=== PATIENT | female | born 1980 | race Caucasian/White ===

== ENCOUNTER 2024-01-09 20:45 | Emergency (ER) | payer MEDICAID, SELFPAY ==
[2024-01-09 20:49] VITALS: BP 142/87; PULSE 83; RESP 14; TEMP 36.6; O2SAT 99
--- NOTE | 2024-01-09 21:25 | ED.DENTAL ---
HPI - Dental/Oral General Chief complaint: Dental/Oral Stated complaint: tooth pain right side with ear pain Time Seen by Provider: 01/09/24 20:51 Source: patient History of Present Illness HPI Narrative: INTERMITTENT PAIN AT TOOTH NUMBER 29 FOR THE LAST FEW DAYS. LAST TIME WAS SEEN BY DENTIST YEARS AGO. SHE DENIES ANY FEVER, CHILLS, DIFFICULTY SWALLOWING OR BREATHING OR HEADACHE Review of Systems Review of Systems: All systems reviewed & are unremarkable except as noted in HPI and below Exam Narrative: GENERAL APPEARANCE: WELL-DEVELOPED, WELL-NOURISHED SKIN: NORMAL COLOR HEAD: NORMOCEPHALIC, NONTRAUMATIC EYES: CLEAR CONJUNCTIVA ENT: OROPHARYNX NORMAL, EARS NORMAL, NOSE NORMAL, TOOTH NUMBER 29 HAVE A HOLE IN IT, OTHERWISE NO SURROUNDING ERYTHEMA OR SWELLING OR ABSCESS FORMATION NECK: SUPPLE, NONTENDER NEUROLOGIC: ALERT AND ORIENTED ?3, RESIDENTIAL CARE FACILITY MANAGER IS NORMAL TESTED, NO GROSS MOTOR DEFICIT Course Vital Signs Vital signs: Vital Signs Temperature 36.6 C 01/09/24 20:49 Pulse Rate 83 01/09/24 20:49 Respiratory Rate 14 01/09/24 20:49 Blood Pressure 142/87 H 01/09/24 20:49 Pulse Oximetry 99 01/09/24 20:49 Oxygen Delivery Room Air 01/09/24 20:49 Temperature 36.6 C 01/09/24 20:49 Pulse Rate 83 01/09/24 20:49 Respiratory Rate 14 01/09/24 20:49 Blood Pressure 142/87 H 01/09/24 20:49 Pulse Oximetry 99 01/09/24 20:49 Oxygen Delivery Room Air 01/09/24 20:49 MDM - Dental/Oral MDM Narrative Medical decision making narrative: DENTAL INFECTION IS MY CONCERN PATIENT TO BE DISCHARGED ON CLINDAMYCIN AND IBUPROFEN Differential Diagnosis Differential diagnosis: Likely dental caries, toothache and other (AT) Critical Care Time Critical Care Time Critical Care Time: No Discharge Plan Discharge Clinical Impression: Dental caries Patient Disposition: Home, Self-Care Condition: Stable Instructions: Antibiotic Form, Toothache (ED) Additional Instructions: CALL YOUR DENTIST SOON POSSIBLE FOR RE-EVALUATION TAKE IBUPROFEN [phone] EVERY 8 HOURS NEEDED Prescriptions: New clindamycin HCl 300 mg capsule 300 mg PO Q6H Qty: 40 0RF ibuprofen [IBU] 800 mg tablet 800 mg PO TID Qty: 20 0RF Follow-up/Referrals: PHYSICIAN NOT ON STAFF,NONSTAFF [Primary Care Provider] - Stand Alone Forms: Work/School Release IP
[2024-01-09 21:27] LABS: BEDSIDEPREGUCG Negative (Negative)
[2024-01-09] MEDS: CLINDAMYCIN HCL 150 MG CAP 450 MG PO (22:05)
[2024-01-09] MEDS: ACETAMINOPHEN 500 MG TABLET 1000 MG PO (22:05)
[2024-01-09] MEDS: IBUPROFEN 400 MG TABLET 800 MG PO (22:06)
== END 2024-01-09 22:16 | disposition home or self-care (01) ==
PROVIDERS: Emergency Provider Emergency Medicine
DX: K02.9 Dental caries, unspecified (principal)
CPT/HCPCS: 81025; 99283; A9270

== ENCOUNTER 2024-02-04 15:50 | Emergency (ER) | payer MEDICAID, SELFPAY ==
[2024-02-04 16:05] VITALS: BP 130/77; PULSE 71; RESP 20; TEMP 36.2; O2SAT 100
--- NOTE | 2024-02-04 16:38 | ED_ITS ---
HPI - Nausea/Vomiting/Diarrhea General Chief complaint: Nausea/Vomiting/Diarrhea Stated complaint: Vomiting/Loss Of Appetite Time Seen by Provider: 02/04/24 16:38 Source: patient, RN notes reviewed and old records reviewed Mode of arrival: ambulatory Limitations: no limitations History of Present Illness HPI Narrative: Patient presents with complaints of nausea and vomiting that began earlier today. She denies any abdominal pain. states that she has been having difficulty keeping down p.o. fluids. Has had multiple sick contacts with similar symptoms. She denies any fever, chills, sweats. Denies any injury or trauma. She voices no other concerns or complaints. Related Data Allergies Allergy/AdvReac Type Severity Reaction Status Date / Time morphine Allergy Swelling Verified 02/04/24 16:37 of Lip/Tongue/Throat Review of Systems Review of Systems: All systems reviewed & are unremarkable except as noted in HPI and below Constitutional: Constitutional: Reports no additional constitutional comp laints ENT: Reports system reviewed and no additional complaints, except as documented Cardiovascular: Cardiovascular: Reports no additional cardiovascular complaints Respiratory: Respiratory: Reports no additional respiratory complaints Gastrointestinal: Gastrointestinal: Reports no additional gastrointestinal complaints, Denies abdominal pain, Denies constipation, Denies diarrhea, Reports nausea and Reports vomiting PMFSH Comments At the time of my signature, I reviewed and agree with the nursing past medical, surgical, social, and family history. There is no relevant family history pertinent to the patient complaint. Exam Const: General: cooperative, no acute distress, alert and awake Orientation/consciousness: oriented to person, oriented to place and oriented to time HENMT: Head: normal to inspection Mouth: Yes moist mucous membranes Resp: Effort & Inspection: normal respiratory effort and able to speak in complete sentences Auscultation: clear to auscultation bilaterally, no crackles, no rales, no rhonchi and no wheezes Cardio: Palpation: normal PMI Rate: regular rate Rhythm: regular rhythm Heart sounds: S1 normal heart sound present and S2 normal heart sound present GI: GI Palp: Yes Soft to palpation, No Tenderness to palpation present (GI) and No Guarding due to palpation present (GI) Auscultation: normal bowel sounds Neuro: General: oriented to person, oriented to place and oriented to time Cranial nerves: Yes CN's II-XII intact bilaterally Psych: Appearance: grossly normal Thought process: Normal thought process present Insight: Good insight present (Psych) Judgement: Good judgement present (Psych) Course Course Level of Care: Express Care Visit Vital Signs Vital signs: Vital Signs Temperature 97.2 F L 02/04/24 16:05 Pulse Rate 71 02/04/24 16:05 Respiratory Rate 20 02/04/24 16:05 Blood Pressure 130/77 02/04/24 16:05 Pulse Oximetry 100 02/04/24 16:05 Oxygen Delivery Room Air 02/04/24 16:05 Temperature 97.2 F L 02/04/24 16:05 Pulse Rate 71 02/04/24 16:05 Respiratory Rate 20 02/04/24 16:05 Blood Pressure 130/77 02/04/24 16:05 Pulse Oximetry 100 02/04/24 16:05 Oxygen Delivery Room Air 02/04/24 16:05 Reviewed MDM - Nausea/Vomiting/Diarrhea MDM Narrative Medical decision making narrative: Reassuring physical exam. Symptoms likely viral in origin. Treat symptomatically. Patient advised to adhere to a light bland diet, advance as tolerated. Start Zofran. Discharge instructions reviewed with patient, as well as provided in writing per nursing staff. The instructions also include specific and strict return/GO TO THE ER as well as f/u information. All questions have been answered, and the patient deny any further questions with discharge and discharge plan. Some parts of this dictation were generated by voice recognition software and may contain typographical and/or grammatical inaccuracies. Differential Diagnosis Differential diagnosis: Likely food poisoning, gastroenteritis and drug-induced nausea and vomiting Medical Records Attestation: I reviewed the patient's medical records. Discharge Plan Discharge Clinical Impression: Acute vomiting Patient Disposition: Home, Self-Care Condition: Stable Instructions: Antibiotic Form, Acute Nausea and Vomiting (ED) Additional Instructions: Take medications as prescribed. Follow-up with primary care provider. Emergency department for new or worsening symptoms. Light bland diet with plenty of fluids, advance as tolerated Patient Language: Portuguese Prescriptions: New ondansetron 4 mg tablet,disintegrating 4 mg PO Q8H PRN (Reason: nausea and vomiting) Qty: 10 0RF Follow-up/Referrals: PHYSICIAN,SPORTS UMPIRE [Primary Care Provider] - 2 Weeks Time of Disposition: 16:43
[2024-02-04] MEDS: ONDANSETRON HCL ODT 4 MG TABLET PO (16:55)
== END 2024-02-04 16:50 | disposition home or self-care (01) ==
PROVIDERS: Emergency Provider Nurse Practitioner Family
DX: R11.10 Vomiting, unspecified (principal)
CPT/HCPCS: 99213; A9270; G0463

== ENCOUNTER 2024-09-27 08:24 | Emergency (ER) | payer OTHER, SELFPAY ==
--- NOTE | ~2024-09-27 | CT_ITS ---
Noncontrast CT scan of the lumbar spine CLINICAL HISTORY: Back pain TECHNIQUE: Axial noncontrast imaging of the lumbar spine was performed. Sagittal and coronal reformat darwin images were constructed. Dose reduction technique was used on this scan by utilizing automated ex posure control and iterative reconstruction technique. The dose-length product (DLP) was 299.29 mGy-c m. FINDINGS: There is no fracture or subluxation of the lumbar spine. Vertebral bodies maintain normal h eight and alignment. Intervertebral disc spaces are well preserved. No significant disc bulge or darryl iation seen at any lumbar level. No spinal canal stenosis or neural foraminal narrowing identified. Paravertebral soft tissues are unremarkable. Impression: No significant abnormality seen. Reviewed, dictated and finalized at location . Impression: No significant abnormality seen.
--- OUTSIDE RECORDS SUMMARY | 2024-09-27 08:26 | XMS_ITS | Continuity of Care Document ---
Author Organization [employer] [facility] Address [address] [place] [address] Phone Care Team Providers Care Fork Lift Technician Name Role Phone Regina Sanders MD Unavailable Unavailable Advance Directives Directive Yes / No Effective Date File Name No Information Encounters Encounter Description Practice Location Reason(s) For Visit Diagnoses Date Provider Providers Copied on Encounter [facility], [address], [place], [id number], [place] tel:[phone] [facility] No Information Tommy Tapia. [address] [place], [place], [id number], [place]. tel:[phone] Family History Family Member Type Diagnosis Age At Onset No Information Payers Payer name Insurance type Covered libertarian ID Authoriza tion(s) No Information Social History [...]
--- NOTE | 2024-09-27 08:30 | ED.BACK ---
HPI - Back Pain/Injury General Chief Complaint: Back Pain/Injury Stated Complaint: I have severe low back pain. goes down my leg Time Seen by Provider: 09/27/24 08:29 Source: patient Mode of arrival: ambulatory Limitations: no limitations History of Present Illness HPI Narrative: 34 years old white female came to the ED with left lower back pain started yesterday morning after lifting a picnic bench. History of chronic lower back pain with intermittent flare. pain radiating to left hip, aching, spasm, not better on muscle relaxant a Related Data Allergies Allergy/AdvReac Type Severity Reaction Status Date / Time morphine Allergy Severe Anaphylaxis Verified 09/27/24 08:39 Review of Systems Review of Systems: All systems reviewed & are unremarkable except as noted in HPI and below Exam Narrative: General appearance: Well-developed, well-nourished Skin: Normal color Head: Normocephalic, nontraumatic Eyes: Clear conjunctiva ENT: Oropharynx normal, ears normal, nose normal Neck: Supple, nontender Chest and respiratory: Airway patent, no respiratory distress, no accessory muscle use Heart: Regular rate/rhythm Abdomen: Soft, nontender, no organomegaly, quiet bowel sounds Vascular: Normal peripheral pulses, normal capillary refill. Musculoskeletal: diffuse tenderness left lower back with palpation, no bruises, no swelling, no rash slight limited left hip movement because of pain Neurologic: Alert and oriented ?3, CARBON DIOXIDE OPERATOR is normal as tested, no gross motor deficit Course Vital Signs Vital signs: Vital Signs Temperature 36.6 C 09/27/24 08:35 Pulse Rate 76 09/27/24 08:35 Respiratory Rate 16 09/27/24 08:35 Blood Pressure 130/93 H 09/27/24 08:35 Pulse Oximetry 100 09/27/24 08:35 Oxygen Delivery Room Air 09/27/24 08:35 Temperature 36.6 C 09/27/24 08:35 Pulse Rate 76 09/27/24 08:35 Respiratory Rate 16 09/27/24 08:35 Blood Pressure 130/93 H 09/27/24 08:35 Pulse Oximetry 100 09/27/24 08:35 Oxygen Delivery Room Air 09/27/24 08:35 MDM - Back Pain/Injury MDM Narrative Medical decision making narrative: lower back muscular strain / sprain is my concern. Patient report having oxycodone and hydrocodone in the past without any side effects. Allergies to morphine only which causes difficulty breathing. Differential Diagnosis Differential diagnosis: Likely strain of lumbar region Imaging Data Radiologist's impression: CT lumbar spine showed no acute abnormality Critical Care Time Critical Care Time Critical Care Time: No Discharge Plan Discharge Clinical Impression: Strain of lumbar region Patient Disposition: Home Condition: Stable Instructions: Acute Low Back Pain (ED), Lower Back Exercises (ED) Additional Instructions: Return if symptoms are worsening , call your family physician for appointment, take Tylenol as as needed for aches and pain, continue home medications. Massage Heating pad Lower back exercise Patient Language: Nepalese Prescriptions: New diclofenac sodium 75 mg tablet,delayed release (DR/EC) 75 mg PO BID PRN (Reason: pain) Qty: 14 0RF cyclobenzaprine 10 mg tablet 10 mg PO TID PRN (Reason: muscle spasm) Qty: 20 0RF No Action ondansetron 4 mg tablet,disintegrating 4 mg PO Q8H PRN (Reason: nausea and vomiting) Qty: 10 0RF Follow-up/Referrals: PHYSICIAN,DRUG SAFETY ASSISTANT [Primary Care Provider] - Franco Alba MD [Physician] - 09/30/24
[2024-09-27 08:35] VITALS: BP 130/93; PULSE 76; RESP 16; TEMP 36.6; O2SAT 100
--- OUTSIDE RECORDS SUMMARY | 2024-09-27 08:50 | XMS_ITS | Continuity of Care Document ---
Author Organization [employer] [facility] Address [address] [address] Phone Care Team Providers Care Roller Operator Name Role Phone Regina Sanders MD Unavailable Unavailable Advance Directives Directive Yes / No Effective Date File Name No Information Encounters Encounter Description Practice Location Reason(s) For Visit Diagnoses Date Provider Providers Copied on Encounter [facility] [facility], [address], [place], [id number], [place] tel:[phone] [facility] No Information Tommy Tapia. [address] [place], [place], [id number], [place]. tel:[phone] Family History Family Member Type Diagnosis Age At Onset No Information Payers Payer name Insurance type Covered constitution party ID Authoriza tion(s) No Information Social History [...]
[2024-09-27 09:01] VITALS: BP 125/85; PULSE 68; RESP 14; O2SAT 99
[2024-09-27 09:29] VITALS: BP 131/81; PULSE 72; RESP 17; O2SAT 100
[2024-09-27 09:31] VITALS: BP 125/83; PULSE 64; RESP 16; O2SAT 100
[2024-09-27] MEDS: HYDROcodone/acetaminophen (*CRX) 5-325 MG TABLET 1 TAB PO (09:33)
[2024-09-27] MEDS: KETOROLAC (*BKC) 60 MG/2 ML VIAL IM (09:33)
== END 2024-09-27 09:52 | disposition home or self-care (01) ==
PROVIDERS: Emergency Provider Emergency Medicine
DX: S39.012A Strain of muscle, fascia and tendon of lower back, initial encounter (principal); X50.0XXA Overexertion from strenuous movement or load, initial encounter
CPT/HCPCS: 72131; 96372; 99284; A9270; J1885

== ENCOUNTER 2024-10-14 17:50 | Emergency (ER) | payer OTHER, SELFPAY ==
--- OUTSIDE RECORDS SUMMARY | 2020-06-15 07:19 | XMS_ITS | Continuity of Care Document ---
Author Organization [facility] Address [address] [place] [address] Phone Care Team Providers Care Possum Trapper Name Role Phone Regina Sanders MD Unavailable Unavailable Advance Directives Directive Yes / No Effective Date File Name No Information Encounters Encounter Description Practice Location Reason(s) For Visit Diagnoses Date Provider Providers Copied on Encounter [facility], [address], [place], [id number], [place] tel:[phone] [facility] No Information Tommy Tapia. [address], [place], [id number], [place]. tel:[phone] Family History Family Member Type Diagnosis Age At Onset No Information Payers Payer name Insurance type Covered democrat ID Authoriza tion(s) No Information Social History Type Description Quantity Date Captured Comments Sex Female Smoking Status No Information Chief Complaint And Reason For Visit No Information Reason For Referral Reason For Referral No Information History Of Present Illness Encounter Date Complaint History Of Prese nt Illness No Information Functional Status Date Functional Assessmen t No Information Instructions Date Instruction Additional Infor mation No Information Assessments Type Assessment Date No Information Patient Care Teams Name Effective Dates (start - stop) Status Members No Information
--- OUTSIDE RECORDS SUMMARY | 2020-06-15 07:19 | XMS_ITS | Continuity of Care Document ---
Author Organization [employer] [facility] Address [address] [place] [address] Phone Care Team Providers Care Registered Dental Assistant Rda Name Role Phone Regina Sanders MD Unavailable Unavailable Advance Directives Directive Yes / No Effective Date File Name No Information Encounters Encounter Description Practice Location Reason(s) For Visit Diagnoses Date Provider Providers Copied on Encounter [facility] [employer] [facility], [address], [place], [id number], [place] tel:[phone] [facility] No Information Tommy Tapia. [address], [place], [id number], [place]. tel:[phone] Family History Family Member Type Diagnosis Age [...]
--- NOTE | ~2024-10-14 | XR_ITS ---
XR wrist RT min 3V 10/14/2024 19:55 Indication: Right wrist pain after trauma Procedure: 3 views right wrist Comparison: No prior studies for comparison. Findings: No acute fracture, subluxation or dislocation. There is an old ulnar styloid avulsion fracture. No soft tissue abnormality. No foreign bodies. Impression: 1: No acute fracture. Reviewed, dictated and finalized at location O. Impression: 1: No acute fracture.
--- NOTE | ~2024-10-14 | XR_ITS ---
EXAMINATION: XR chest 1V 10/14/2024 19:55 INDICATION: Syncope PROCEDURE: AP view of the chest COMPARISON: No prior studies for comparison. FINDINGS: The lungs are clear. The cardiomediastinal silhouette is within normal limits. There are no pleural effusions. There is no pneumothorax suspected. IMPRESSION: 1: NO ACUTE CARDIOPULMONARY DISEASE. Reviewed, dictated and finalized at location O.
[2024-10-14 17:51] VITALS: BP 117/73; PULSE 60; RESP 16; TEMP 36.8; O2SAT 98
[2024-10-14 18:35] VITALS: BP 113/76; PULSE 65; RESP 18; O2SAT 100
--- NOTE | 2024-10-14 19:15 | ECG_ITS ---
Test Date: 2024-10-14 19:59:27 Measurements Intervals [place] Rate: 72 P: 66 [place]: 165 QRS: 73 QRSD: 86 T: 47 QT: 352 QTc: 387 Interpretive Statements SINUS RHYTHM No previous ECG available for comparison Electronically Signed On 10-15-2024 11:32:21 CDT by Dayron Servin M.D.
--- NOTE | 2024-10-14 19:23 | ED_ITS ---
HPI - General Adult General Chief complaint: Unspecified Stated complaint: near syncope, R wrist pain Time Seen by Provider: 10/14/24 19:00 History of Present Illness HPI narrative: this is a 34-year-old female with history of spina bifida who presents to ED for syncopal episode and right wrist pain. Patient states that a few days ago, she hit her right wrist on a door and she has been having severe pain since then. She states that she was a car was having and acute worsening of her pain and she syncopized for a couple seconds per family at bedside. No family history of sudden cardiac . Patient is on pain medications that she was recently prescribed for acute on chronic back pain. She has not taken any of that today. Denies fevers, chills, headache, nausea, vomiting, numbness, tingling, palpitations. Related Data Allergies Allergy/AdvReac Type Severity Reaction Status Date / Time morphine Allergy Severe Anaphylaxis Verified 10/14/24 18:37 Course Vital Signs Vital signs: Vital Signs Temperature 98.3 F 10/14/24 17:51 Pulse Rate 60 10/14/24 17:51 Respiratory Rate 16 10/14/24 17:51 Blood Pressure 117/73 10/14/24 17:51 Pulse Oximetry 98 10/14/24 17:51 Oxygen Delivery Room Air 10/14/24 17:51 Temperature 98.3 F 10/14/24 17:51 Pulse Rate 65 10/14/24 18:35 Respiratory Rate 18 10/14/24 18:35 Blood Pressure 113/76 10/14/24 18:35 Pulse Oximetry 100 10/14/24 18:35 Oxygen Delivery Room Air 10/14/24 18:35 Medical Decision Making [facility] Narrative Medical decision making narrative: 34-year-old female that presented to the ED for syncope and wrist pain. On initial evaluation, patient was in no acute distress, afebrile, hemodynamically stable. Heart and lungs clear. she has tenderness over the right distal radius without any obvious deformities. No tenderness to the snuffbox. x-ray right wrist showed no fractures. Patient likely has contusion. symptoms are most consistent with a vasovagal syncope in the setting of her severe pain low concern for cardiogenic or central syncope. Patient was advised follow-up with PCP next week for evaluation. She already has diclofenac p.o. at home which I advised her to take. Patient was agreeable to this plan. Given strict return precautions. Differential Diagnosis Differential Diagnosis: Fracture, sprain, strain, vasovagal syncope Medical Records Medical records reviewed: Yes I reviewed the external patient's medical records. Vital Signs Vital Signs: Vital Signs Temperature 98.3 F 10/14/24 17:51 Pulse Rate 60 10/14/24 17:51 Respiratory Rate 16 10/14/24 17:51 Blood Pressure 117/73 10/14/24 17:51 Pulse Oximetry 98 10/14/24 17:51 Oxygen Delivery Room Air 10/14/24 17:51 Temperature 98.3 F 10/14/24 17:51 Pulse Rate 65 10/14/24 18:35 Respiratory Rate 18 10/14/24 18:35 Blood Pressure 113/76 10/14/24 18:35 Pulse Oximetry 100 10/14/24 18:35 Oxygen Delivery Room Air 10/14/24 18:35 Lab Data Lab results reviewed: Yes I reviewed the patient's lab results. 10/14/24 19:35 10/14/24 19:35 Labs: Lab Results 10/14/24 Range/Units 19:35 WBC 10.2 H (4.5-10.0) K/mm3 RBC 4.14 L (4.2-5.4) M/mm3 Hgb 13.4 (12.0-15.0) g/dL Hct 37.9 (37.0-47.0) % MCV 91.5 (80-100) fl MCH 32.4 (26-34) pg MCHC 35.4 (32-36) g/dl RDW 12.3 (11.5-14.5) % Plt Count 145 L (150-375) k/mm3 MPV 11.0 H (7.4-10.4) fl Immature Gran % (Auto) 0.6 H (0-0.5) % Neut % (Auto) 64.2 (45.5-73.1) % Lymph % (Auto) 25.3 (18.3-44.2) % [place] % (Auto) 7.2 (2.6-8.5) % Eos % (Auto) 1.8 (0-4.4) % Baso % (Auto) 0.9 (0.2-1.2) % Lymph # (Auto) 2.59 (0.9-3.2) K/mm3 [place] # (Auto) 0.7 H (0.1-0.6) K/mm3 Eos # (Auto) 0.2 (0-0.3) K/mm3 Baso # (Auto) 0.1 (0.0-0.1) K/mm3 Abs Immat Gran (auto) 0.06 H (0.00-0.031) K/mm3 Absolute Neuts (auto) 6.6 (1.3-6.7) K/mm3 Absolute Nucleated RBC 0.000 (0.0-0.012) K/mm3 Nucleated RBC % 0.0 (0.0-0.2) % Sodium 137 (137-145) mmol/L Potassium 3.4 (3.4-5.0) mmol/L Chloride 105 (98-107) mmol/L Carbon Dioxide 26 (22-30) mmol/L Anion Gap 6 (4-12) mmol/L BUN 9 (7-17) mg/dL Creatinine 0.93 (0.7-1.0) mg/dL Estim Creat Clear Calc 65 ml/min Estimated GFR > 60 (59 - ) Glucose 97 (65-110) mg/dL Calcium 9.2 (8.4-10.2) mg/dL Total Bilirubin 1.4 H (0.2-1.3) mg/dL AST 25 (14-36) U/L ALT 19 (6-35) U/L Alkaline Phosphatase 84 (38-126) U/L Total Protein 7.1 (6.3-8.2) g/dL Albumin 4.2 (3.5-5.1) g/dL Imaging Data Radiologist's impression: Impressions Chest X-Ray 10/14/24 19:57 IMPRESSION: 1: NO ACUTE CARDIOPULMONARY DISEASE. Wrist X-Ray 10/14/24 19:57 Impression: 1: No acute fracture. ECG Data EKG #1: Attestation: I personally reviewed and interpreted this ECG as follows: ECG completion date: 10/14/24 ECG completion time: 19:59 Interpretation: Normal sinus rhythm rate of 72, normal axis, normal intervals, no acute ST or T-wave changes Discharge Plan Discharge Clinical Impression: Syncope, vasovagal Contusion of right wrist Qualifiers: Encounter type: initial encounter Qualified Code(s): S60.211A - Contusion of right wrist, initial encounter Patient Disposition: Home Condition: Stable Instructions: Antibiotic Form, Syncope (ED), Contusion in Adults (ED) Additional Instructions: take Tylenol and the diclofenac that your previously prescribed for your pain. Also apply ice to the area. She did apply a brace if that will help your pain. Follow-up with your PCP or with Dr. Alba, Family medicine, in the next week for evaluation. Return to ED for any new or worsening symptoms. Patient Language: Urdu Prescriptions: No Action ondansetron 4 mg tablet,disintegrating 4 mg PO Q8H PRN (Reason: nausea and vomiting) Qty: 10 0RF diclofenac sodium 75 mg tablet,delayed release (DR/EC) 75 mg PO BID PRN (Reason: pain) Qty: 14 0RF cyclobenzaprine 10 mg tablet 10 mg PO TID PRN (Reason: muscle spasm) Qty: 20 0RF Follow-up/Referrals: PHYSICIAN,TACTICAL DEBRIEFER [Non-Staff, Internal Medicine]
[2024-10-14 19:59] LABS: Hematocrit 37.9 % (37.0-47.0); Hemoglobin 13.4 g/dL (12.0-15.0); Immature Granulocyte Percent A 0.6 % (0-0.5); Lymphocytes Absolute Auto 2.59 K/mm3 (0.9-3.2); Mean Corpuscular HGB Conc 35.4 g/dl (32-36); Mean Corpuscular Hemoglobin 32.4 pg (26-34); Mean Corpuscular Volume 91.5 fl (80-100); Nucleated Red Blood Cells Absolute Auto 0.000 K/mm3 (0.0-0.012); Nucleated Red Blood Cells Perc 0.0 % (0.0-0.2); Platelet Count Result 145 k/mm3 (150-375); Red Blood Count 4.14 M/mm3 (4.2-5.4); White Blood Count 10.2 K/mm3 (4.5-10.0)
[2024-10-14 20:12] LABS: Alanine Aminotransferase 19 U/L (6-35); Albumin Level 4.2 g/dL (3.5-5.1); Alkaline Phosphatase 84 U/L (38-126); Anion Gap 6 mmol/L (4-12); Aspartate Amino Transferase 25 U/L (14-36); Bilirubin,Total 1.4 mg/dL (0.2-1.3); Blood Urea Nitrogen 9 mg/dL (7-17); Calcium 9.2 mg/dL (8.4-10.2); Carbon Dioxide 26 mmol/L (22-30); Chloride 105 mmol/L (98-107); Estimated CRCL calculation 65 ml/min; Estimated Glomerular Filt Rate > 60; Glucose 97 mg/dL (65-110); Potassium 3.4 mmol/L (3.4-5.0); Sodium 137 mmol/L (137-145); Total Protein 7.1 g/dL (6.3-8.2)
[2024-10-14] MEDS: KETOROLAC 30 MG/ML VIAL (*BKC) IM (20:39)
== END 2024-10-14 20:46 | disposition home or self-care (01) ==
PROVIDERS: Emergency Provider Student in an Organized Health Care Education/Training Program; PCP Internal Medicine
DX: R55 Syncope and collapse (principal); S60.211A Contusion of right wrist, initial encounter; W22.09XA Striking against other stationary object, initial encounter
CPT/HCPCS: 36415; 71045; 73110; 80053; 85025; 93005; 96372; 99284; J1885